=== PATIENT | male | born 1945 | race Caucasian/White ===

== ENCOUNTER 2019-01-03 10:08 | Inpatient (IN) | payer SELFPAY ==
[~2019-01-03] VITALS: Ht 185.4 cm; Wt 130.0 kg
[2019-01-03 10:20] LABS: PCO2 Venous 50.2 mmHg (38-42); pH Blood Venous 7.34 (7.34-7.37)
[2019-01-03 10:21] LABS: Base Excess Venous 1.3 mmol/L; Bicarbonate Venous 24.4 mmol/L (24.0-30.0); PO2 Venous 58.3 mmHg (38-42)
[2019-01-03 10:44] LABS: BASOPHILS ABSOLUTE AUTO 0.08 K/mm3 (0.00-0.23); BASOPHILS PERCENT AUTO 1 % (0-2); EOSINOPHILS ABSOLUTE AUTO 0.18 K/mm3 (0.00-0.68); EOSINOPHILS PERCENT AUTO 2 % (0-6); Hematocrit 49.5 % (37.0-53.0); Hemoglobin 15.9 g/dL (13.5-17.5); IMMATURE GRAN ABSOLUTE AUTO 0.04 K/mm3 (0.00-0.10); IMMATURE GRAN PERCENT AUTO 0 % (0-1); LYMPHOCYTES ABSOLUTE AUTO 3.62 K/mm3 (0.84-5.20); LYMPHOCYTES PERCENT AUTO 32 % (21-46); MONOCYTES ABSOLUTE AUTO 0.76 K/mm3 (0.16-1.47); MONOCYTES PERCENT AUTO 7 % (4-13); Mean Corpuscular HGB 30.1 pg (26.0-34.0); Mean Corpuscular HGB Conc 32.1 g/dL (31.5-36.5); Mean Corpuscular Volume 94 fL (80-100); Mean Platelet Volume 11.6 fL (9.1-12.4); NEUTROPHILS ABSOLUTE AUTO 6.79 K/mm3 (1.96-9.15); NEUTROPHILS PERCENT AUTO 59 % (41-73); Platelet Count 169 K/mm3 (150-400); RDW Coefficient Variation 12.3 % (11.7-14.2); RDW Standard Deviation 42.2 fL (35.1-46.3); Red Blood Cell Count 5.29 M/mm3 (4.30-5.90); White Blood Cell Count 11.47 K/mm3 (4.00-11.30)
[2019-01-03 11:15] LABS: D-Dimer, Quantitative 0.41 mg/L FEU (0.00-0.52); International Normalized Ratio 1.08; Prothrombin Time Results 11.4 Sec (9.7-11.5)
[2019-01-03 11:30] LABS: Alanine Aminotransfer (ALT/SGP 23 U/L (12-78); Albumin, Blood 3.5 g/dL (3.4-5.0); Albumin/Globulin Ratio 0.8 (0.8-1.8); Alk Phos 90 U/L (50-136); Anion Gap 8 mmol/L (6-16); Aspartate Aminotrans (AST/SGOT 17 U/L (12-37); Bilirubin, Total 1.3 mg/dL (0.1-1.0); Blood Urea Nitrogen 17 mg/dL (8-24); Bun/Creatinine Ratio 26.2 (12.0-20.0); CO2, Blood 25 mmol/L (21-32); Calcium, Blood 8.5 mg/dL (8.5-10.1); Chloride, Blood 104 mmol/L (98-108); Creatinine, Blood 0.65 mg/dL (0.60-1.20); Globulin, Blood 4.4 g/dL (2.2-4.0); Glomerular Filtration Rate >60 (60-); Glucose, Blood 236 mg/dL (70-99); Potassium, Blood 3.5 mmol/L (3.5-5.5); Sodium, Blood 137 mmol/L (136-145); Total Protein, Blood 7.9 g/dL (6.4-8.2); Troponin I 0.069 ng/mL (0.000-0.040)
[2019-01-03 11:50] LABS: Digoxin (Lanoxin) 0.64 ug/mL (0.80-2.00)
[2019-01-03] MEDS ORDERED: ELIQUIS5 MG PO (12:28)
[2019-01-03] MEDS ORDERED: DIGOX250 MCG PO (12:29)
[2019-01-03] MEDS ORDERED: Cardizem CD 24240 MG PO (12:29)
[2019-01-03] MEDS ORDERED: MUCUS RELIEF C400 MG PO (12:30)
[2019-01-03] MEDS ORDERED: Flonase 0.05% N16 GM (12:30)
[2019-01-03] MEDS ORDERED: Metoprolol Tar100 MG PO (12:31)
[2019-01-03] MEDS ORDERED: Prinivil10 MG PO (12:31)
[2019-01-03] MEDS ORDERED: TORSE20 PO (12:31)
--- NOTE | 2019-01-03 16:30 | NUR ---
PT ARRIVED TO PCU 14 VIA GURNEY FROM ED. REPORT FROM ED NURSE, PT INDEPENDENT TO TRANSFER TO BED, IN ATTENDENCE. PT STATES HE REFUSED TO BE TRANSFERED TO [facility] HIS HAS ALZHIEMERS AND WOULD NOT BE ABLE TO FIND HER WAY THERE, HE HAS FAMILY COMING UP FROM [facility] AND WOULD BE OPEN TO GOING THEN WHEN THERE IS SOMEONE TO CARE FOR HER. HE IS A/OX3, PLEASANT AND COOPERATIVE WITH CARE, FOLLOWS COMMANDS WELL, DENIES PAIN AT THIS TIME, STATES HE IS BREATHING MUCH EASIER, IS CURRENTLY ON 4 LITERS 02, HAS A CPAP AT HOME, BUT IS SO IRRITATING HE DOESN'T USE IT, LUNGS ARE CLEAR T/O, RESP EVEN AND UNLABORED, HE REPORTS OCC PRODUCTIVE COUGH OF GREEN SPUTUM, HRR, TELE IN PLACE RUNNING AFIB PER MONITOR, SEE STRIP, 1+ EDEMA NOTED TO B/L LE, PPP+2, CAP REFILL <3 SEC, VS STABLE, AFEBRILE, IV SITE IS CLEAR AND PATENT, S.L. BTX4, ABD FLAT SOFT NONTENDER, VOIDS WITHOUT DIFF, SKIN C/W/D, MAEW, KENYON, CALL LIGHT IN REACH.
--- NOTE | 2019-01-03 18:42 | NUR ---
DR. SAHU WAS IN TO SEE PT. WILL CATH HIM TOMORROW. NPO AFTER MIDNIGHT. PT DENEIED PAIN. NO COMPLAINTS. CALL LIGHT IN REACH. AT BEDSIDE.
--- NOTE | 2019-01-03 19:35 | NUR ---
ASSUMED CARE PT RESTING IN ROOM COMFORTABLY W/ SPOUSE AT BEDSIDE. PER DAY SHIFT RN PT WAS A [facility] AND REFUSED TRANSPORT TO [facility] FOR POSSIBLE NSTEMI DUE TO CONCERN OVER SPOUSE, PT IS WIFES PRIMARY CAREGIVER. PER DAY SHIFT PT HAS REMAINED PAIN FREE SINCE ARRIVAL, RESP EVEN UNLBAORED ON 3L NC SATS >95% DENIES SOB. PT IS INDEPENDENT IN ROOM, CALLS APPROPRIATELY FOR HELP W/ LINES AND O2. CALL LIGHT IS IN REACH.
--- NOTE | 2019-01-03 23:45 | NUR ---
HEPARIN GTT STARTED ON PT AFTER CALL TO PROVIDER ABOUT CRITICAL HIGH TROP. PT EDUCATED ON REASON FOR STARTING GTT. NO CHANGE IN PT STATUS. CONTINUES TO DENY PAIN.
--- NOTE | 2019-01-04 06:50 | NUR ---
SHIFT SUMMARY PT RESTING IN ROOM COMFORTABLY. PT HAD ELEVATED TROPONINS OVERNIGHT, PROVIDER WAS CALLED AND HEPARIN GTT WAS STARTED. PT HAD NO COMPLAINTS OF FUTHER CP OVERNIGHT. SLEPT WELL. RESP EVEN UNLBAORED ON 3L NC. SATS >92% DENIES SOB. THIS AM PIV TO L HAND WAS NOTED TO BE BLEEDING AROUND INSERTION. IV DC'D AND LINEN CHANGED. LAB TO ROOM TO DRAW APTT LEVEL THIS AM. WILL RECONNECT HEPARIN AFTER BLOOD DRAW. CALL LIT IN REACH. PT CALLS APPROPRIATLY.
[2019-01-04 07:09] LABS: BASOPHILS ABSOLUTE AUTO 0.07 K/mm3 (0.00-0.23); BASOPHILS PERCENT AUTO 1 % (0-2); EOSINOPHILS ABSOLUTE AUTO 0.17 K/mm3 (0.00-0.68); EOSINOPHILS PERCENT AUTO 2 % (0-6); IMMATURE GRAN ABSOLUTE AUTO 0.04 K/mm3 (0.00-0.10); IMMATURE GRAN PERCENT AUTO 0 % (0-1); LYMPHOCYTES ABSOLUTE AUTO 3.07 K/mm3 (0.84-5.20); LYMPHOCYTES PERCENT AUTO 26 % (21-46); MONOCYTES ABSOLUTE AUTO 0.76 K/mm3 (0.16-1.47); MONOCYTES PERCENT AUTO 7 % (4-13); Mean Corpuscular HGB 30.5 pg (26.0-34.0); Mean Corpuscular HGB Conc 31.9 g/dL (31.5-36.5); Mean Corpuscular Volume 96 fL (80-100); Mean Platelet Volume 11.5 fL (9.1-12.4); NEUTROPHILS ABSOLUTE AUTO 7.51 K/mm3 (1.96-9.15); NEUTROPHILS PERCENT AUTO 65 % (41-73); Platelet Count 172 K/mm3 (150-400); RDW Coefficient Variation 12.4 % (11.7-14.2); RDW Standard Deviation 43.8 fL (35.1-46.3); Red Blood Cell Count 4.92 M/mm3 (4.30-5.90); White Blood Cell Count 11.62 K/mm3 (4.00-11.30)
[2019-01-04 07:27] LABS: Anion Gap 7 mmol/L (6-16); Blood Urea Nitrogen 16 mg/dL (8-24); Bun/Creatinine Ratio 21.8 (12.0-20.0); CO2, Blood 28 mmol/L (21-32); Calcium, Blood 8.7 mg/dL (8.5-10.1); Chloride, Blood 102 mmol/L (98-108); Creatinine, Blood 0.73 mg/dL (0.60-1.20); Glomerular Filtration Rate >60 (60-); Glucose, Blood 165 mg/dL (70-99); Potassium, Blood 3.8 mmol/L (3.5-5.5); Sodium, Blood 137 mmol/L (136-145)
--- NOTE | 2019-01-04 09:10 | NUR ---
PT RESTING IN BED. ASSESS COMPLETE. VSS. CALLED LABOR DELIVERY RN TO GET EST TIME OF PROCEDURE, AWAITING RETURN CALL. AM MEDS GIVEN
--- NOTE | 2019-01-04 09:20 | NUR ---
BUDGET CONTROLLER RN HERE, PT OFF TO BUDGET CONTROLLER
--- NOTE | 2019-01-04 11:40 | NUR ---
PT BACK IN ROOM. ATTEMPTED R GROIN ACCESS, FAILED. PT UNABLE TO STRAIGHTEN R WRIST SO ACCESS WAS OBTAINED IN L TR SITE. TR BAND IN PLACE. SOME OOZING NOTED AT GROIN SITE, SUPERVISOR PAINTING RN HELD PRESSURE FOR APPROX 5 MIN AND PLACED DRSG. SOME BRUISING NOTED AT TR SITE. PT ALERT. STATES SOME SORENESS AT SITES BUT NO PAIN OTHERWISE. NO INTERVENTION, PT HAS MULTIVESSELL DISEASE PER CATH RN'S AND STATE DR SAHU WILL COME TALK WITH PT ABOUT [place] TRANSFER.VSS. CONT TO MONITOR
--- NOTE | 2019-01-04 14:36 | NUR ---
2 CC AIR REMOVED FROM TR BAND. NO NEW BLEEDING NO HEMATOMA, CONTINUJES TO HAVE PAIN AT THE lT WRIST SITE.
--- NOTE | 2019-01-04 18:04 | NUR ---
PT TRANSFERED TO [facility]IA [facility]. REPORT CALLED TO TAWANA MARTINEZ. PT GOING WITH 5CC AIR STILL IN TR BAND. EMS AWARE
== END 2019-01-04 17:43 | disposition short-term general hospital (02) | DRG 280 ==
LOC: ER 10:08 → PCU 13:53
PROVIDERS: Emergency Medicine; ADMIT Internal Medicine
PROC: 5A09357 Assistance with Respiratory Ventilation, Less than 24 Consecutive Hours, Continuous Positive Airway Pressure (ICD-10-PCS; principal; 2019-01-03)
PROC: B2111ZZ Fluoroscopy of Multiple Coronary Arteries using Low Osmolar Contrast (ICD-10-PCS; 2019-01-04)
DX: I21.4 Non-ST elevation (NSTEMI) myocardial infarction (principal); J96.01 Acute respiratory failure with hypoxia; I50.41 Acute combined systolic (congestive) and diastolic (congestive) heart failure; I25.110 Atherosclerotic heart disease of native coronary artery with unstable angina pectoris; I48.91 Unspecified atrial fibrillation; J44.9 Chronic obstructive pulmonary disease, unspecified; E11.9 Type 2 diabetes mellitus without complications; Z87.891 Personal history of nicotine dependence; I44.7 Left bundle-branch block, unspecified; E66.01 Morbid (severe) obesity due to excess calories; Z68.38 Body mass index [BMI] 38.0-38.9, adult; I11.0 Hypertensive heart disease with heart failure
CPT/HCPCS: 36415; 71045; 80048; 80053; 80162; 82803; 82947; 83880; 84484; 85025; 85379; 85610; 85730; 93005; 93010; 93306; 93458; 94660; 94760; 94762; 96374; 99152; 99153; 99285-25; C1722; C1760; C1769; C1887; C1894; J1644; J1940; J2250; J3010; J7030; Q9967

== ENCOUNTER 2019-06-16 07:18 | Emergency (ER) | payer MEDICARE, OTHER ==
[~2019-06-16] VITALS: Ht 185.4 cm; Wt 129.3 kg
[~2019-06-16 07:18] MED LIST: Cardizem CD 24240 MG PO; DIGOX250 MCG PO; ELIQUIS5 MG PO; Flonase 0.05% N16 GM; MUCUS RELIEF C400 MG PO; Metoprolol Tar100 MG PO; Prinivil10 MG PO; TORSE20 PO
[2019-06-16 07:55] LABS: Chloride (POC) 102 mmol/L (98-108); Creatinine (POC) 0.8 mg/dL (0.8-1.3); Glucose (ISTAT POC) 151 mg/dL (70-99); Hemoglobin (POC) 12.9 g/dL (13.5-17.5); Sodium (POC) 136 mmol/L (135-148); Total CO2 (POC) 28 mmol/L (21-32)
[2019-06-16 08:14] LABS: BASOPHILS ABSOLUTE AUTO 0.08 K/mm3 (0.00-0.23); BASOPHILS PERCENT AUTO 1 % (0-2); EOSINOPHILS ABSOLUTE AUTO 0.24 K/mm3 (0.00-0.68); EOSINOPHILS PERCENT AUTO 3 % (0-6); Hematocrit 39.5 % (37.0-53.0); Hemoglobin 12.7 g/dL (13.5-17.5); IMMATURE GRAN ABSOLUTE AUTO 0.04 K/mm3 (0.00-0.10); IMMATURE GRAN PERCENT AUTO 0 % (0-1); LYMPHOCYTES PERCENT AUTO 15 % (21-46); MONOCYTES ABSOLUTE AUTO 0.77 K/mm3 (0.16-1.47); MONOCYTES PERCENT AUTO 8 % (4-13); Mean Corpuscular HGB 29.4 pg (26.0-34.0); Mean Corpuscular HGB Conc 32.2 g/dL (31.5-36.5); Mean Corpuscular Volume 91 fL (80-100); NEUTROPHILS ABSOLUTE AUTO 7.14 K/mm3 (1.96-9.15); NEUTROPHILS PERCENT AUTO 73 % (41-73); RDW Coefficient Variation 15.3 % (11.7-14.2); RDW Standard Deviation 51.5 fL (35.1-46.3); Red Blood Cell Count 4.32 M/mm3 (4.30-5.90); White Blood Cell Count 9.77 K/mm3 (4.00-11.30)
[2019-06-16 08:17] LABS: Mean Platelet Volume 11.7 fL (9.1-12.4); Platelet Count 172 K/mm3 (150-400)
[2019-06-16 08:24] LABS: Alanine Aminotransfer (ALT/SGP 18 U/L (12-78); Albumin, Blood 3.6 g/dL (3.4-5.0); Albumin/Globulin Ratio 0.9 (0.8-1.8); Alk Phos 90 U/L (50-136); Anion Gap 6 mmol/L (6-16); Aspartate Aminotrans (AST/SGOT 17 U/L (12-37); Bilirubin, Total 1.3 mg/dL (0.1-1.0); Blood Urea Nitrogen 22 mg/dL (8-24); CO2, Blood 26 mmol/L (21-32); Calcium, Blood 8.5 mg/dL (8.5-10.1); Chloride, Blood 105 mmol/L (98-108); Creatinine, Blood 0.82 mg/dL (0.60-1.20); Glomerular Filtration Rate >60 (60-); Glucose, Blood 149 mg/dL (70-99); Potassium, Blood 4.1 mmol/L (3.5-5.5); Sodium, Blood 137 mmol/L (136-145); Total Protein, Blood 7.6 g/dL (6.4-8.2); Troponin I <0.015 ng/mL (0.000-0.040)
[2019-06-16] MEDS ORDERED: ATOR40TA (08:44)
[2019-06-16] MEDS ORDERED: FURO40 (08:47)
[2019-06-16] MEDS ORDERED: Flonase 0.05% N16 GM (08:47)
[2019-06-16] MEDS ORDERED: LEVSOD50 PO (08:48)
[2019-06-16] MEDS ORDERED: POTA10T (08:49)
[2019-06-16] MEDS ORDERED: Norco 5-325 Ta1 EACH PO (12:03)
== END 2019-06-16 12:20 | disposition home or self-care (01) ==
LOC: ER 07:18
PROVIDERS: Emergency Medicine
DX: R07.9 Chest pain, unspecified (principal); M25.512 Pain in left shoulder; J81.1 Chronic pulmonary edema; I48.91 Unspecified atrial fibrillation; I10 Essential (primary) hypertension; E11.9 Type 2 diabetes mellitus without complications; D64.9 Anemia, unspecified; Z79.899 Other long term (current) drug therapy
CPT/HCPCS: 36415; 71046; 80047; 80053; 83690; 83880; 84484; 85014; 85025; 93005; 93010; 96374; 99285-25; J1940

== ENCOUNTER 2021-08-21 08:11 | Emergency (ER) | payer MEDICARE, OTHER ==
[~2021-08-21] VITALS: Ht 185.4 cm; Wt 139.7 kg
[~2021-08-21 08:11] MED LIST changes: +ATOR40TA; +FURO40; +LEVSOD50 PO; +Norco 5-325 Ta1 EACH PO; +POTA10T
[2021-08-21 09:00] LABS: BASOPHILS ABSOLUTE AUTO 0.09 K/mm3 (0.00-0.23); BASOPHILS PERCENT AUTO 1 % (0-2); EOSINOPHILS ABSOLUTE AUTO 0.23 K/mm3 (0.00-0.68); EOSINOPHILS PERCENT AUTO 2 % (0-6); Hemoglobin 12.4 g/dL (13.5-17.5); IMMATURE GRAN ABSOLUTE AUTO 0.03 K/mm3 (0.00-0.10); IMMATURE GRAN PERCENT AUTO 0 % (0-1); LYMPHOCYTES ABSOLUTE AUTO 1.76 K/mm3 (0.84-5.20); LYMPHOCYTES PERCENT AUTO 17 % (21-46); MONOCYTES ABSOLUTE AUTO 0.78 K/mm3 (0.16-1.47); MONOCYTES PERCENT AUTO 8 % (4-13); Mean Corpuscular HGB Conc 31.8 g/dL (31.5-36.5); Mean Corpuscular Volume 94 fL (80-100); Mean Platelet Volume 10.8 fL (9.1-12.4); NEUTROPHILS ABSOLUTE AUTO 7.37 K/mm3 (1.96-9.15); NEUTROPHILS PERCENT AUTO 72 % (41-73); Platelet Count 207 K/mm3 (150-400); Red Blood Cell Count 4.14 M/mm3 (4.30-5.90); White Blood Cell Count 10.26 K/mm3 (4.00-11.30)
[2021-08-21 09:26] LABS: Alanine Aminotransfer (ALT/SGP 14 U/L (12-78); Albumin, Blood 3.2 g/dL (3.4-5.0); Albumin/Globulin Ratio 0.7 (0.8-1.8); Alk Phos 83 U/L (50-136); Anion Gap 6 mmol/L (6-16); Aspartate Aminotrans (AST/SGOT 11 U/L (12-37); Bilirubin, Total 1.2 mg/dL (0.1-1.0); Blood Urea Nitrogen 19 mg/dL (8-24); Bun/Creatinine Ratio 22.5 (12.0-20.0); CO2, Blood 26 mmol/L (21-32); Calcium, Blood 8.9 mg/dL (8.5-10.1); Chloride, Blood 104 mmol/L (98-108); Creatinine, Blood 0.84 mg/dL (0.60-1.20); Globulin, Blood 4.6 g/dL (2.2-4.0); Glomerular Filtration Rate >60 (60-); Glucose, Blood 159 mg/dL (70-99); Potassium, Blood 3.6 mmol/L (3.5-5.5); Sodium, Blood 136 mmol/L (136-145); Total Protein, Blood 7.8 g/dL (6.4-8.2); Troponin I <0.015 ng/mL (0.000-0.040)
[2021-08-21] MEDS ORDERED: COMBIVENT RESPIM4 G1 INH (12:33)
[2021-08-21] MEDS ORDERED: ALBU90OI INH (12:33)
[2021-08-21] MEDS ORDERED: DOXY100 PO (12:33)
[2021-08-21] MEDS ORDERED: PRED20 PO (12:33)
== END 2021-08-21 12:44 | disposition home or self-care (01) ==
LOC: ER 08:11
PROVIDERS: Emergency Medicine
DX: I31.3 Pericardial effusion (noninflammatory) (principal); J44.1 Chronic obstructive pulmonary disease with (acute) exacerbation; I48.91 Unspecified atrial fibrillation; Z79.899 Other long term (current) drug therapy; I10 Essential (primary) hypertension; E11.9 Type 2 diabetes mellitus without complications; D64.9 Anemia, unspecified; Z87.891 Personal history of nicotine dependence
CPT/HCPCS: 36415; 71046; 80053; 83880; 84484; 85025; 93005; 93010; 94640; 94644; 96374; 96375; 99285-25; A9270; J1940; J7512

== ENCOUNTER 2023-07-27 09:49 | Emergency (ER) | payer OTHER ==
[~2023-07-27] VITALS: Ht 185.4 cm; Wt 149.7 kg
[~2023-07-27 09:49] MED LIST changes: +ALBU90OI INH; -ATOR40TA; +ATOR40TA PO; +COMBIVENT RESPIM4 G1 INH; +DOXY100 PO; +PRED20 PO
[2023-07-27 11:13] LABS: BASOPHILS ABSOLUTE AUTO 0.12 K/mm3 (0.00-0.23); BASOPHILS PERCENT AUTO 1 % (0-2); EOSINOPHILS ABSOLUTE AUTO 0.18 K/mm3 (0.00-0.68); EOSINOPHILS PERCENT AUTO 2 % (0-6); Hematocrit 41.7 % (37.0-53.0); Hemoglobin 13.9 g/dL (13.5-17.5); IMMATURE GRAN ABSOLUTE AUTO 0.04 K/mm3 (0.00-0.10); IMMATURE GRAN PERCENT AUTO 0 % (0-1); LYMPHOCYTES ABSOLUTE AUTO 1.39 K/mm3 (0.84-5.20); LYMPHOCYTES PERCENT AUTO 13 % (21-46); MONOCYTES ABSOLUTE AUTO 0.64 K/mm3 (0.16-1.47); MONOCYTES PERCENT AUTO 6 % (4-13); Mean Corpuscular HGB 31.9 pg (26.0-34.0); Mean Corpuscular HGB Conc 33.3 g/dL (31.5-36.5); Mean Corpuscular Volume 96 fL (80-100); Mean Platelet Volume 11.6 fL (9.1-12.4); NEUTROPHILS ABSOLUTE AUTO 8.28 K/mm3 (1.96-9.15); NEUTROPHILS PERCENT AUTO 78 % (41-73); Platelet Count 217 K/mm3 (150-400); RDW Coefficient Variation 12.6 % (11.7-14.2); RDW Standard Deviation 44.1 fL (35.1-46.3); Red Blood Cell Count 4.36 M/mm3 (4.30-5.90); White Blood Cell Count 10.65 K/mm3 (4.00-11.30)
[2023-07-27] MEDS ORDERED: Amiodarone HCl200 MG PO (13:29)
[2023-07-27] MEDS ORDERED: ENTRESTO 49 MG1 EACH PO (13:30)
[2023-07-27] MEDS ORDERED: SERT50 PO (13:31)
[2023-07-27] MEDS ORDERED: SPIR25 PO (13:31)
[2023-07-27] MEDS ORDERED: TIOT18 INH (13:31)
[2023-07-27] MEDS ORDERED: METF500 PO (13:31)
[2023-07-27 14:07] LABS: Albumin, Blood 3.4 g/dL (3.4-5.0); Albumin/Globulin Ratio 0.9 (0.8-1.8); Bun/Creatinine Ratio 22.5 (12.0-20.0); Creatinine, Blood 1.02 mg/dL (0.60-1.20); Globulin, Blood 3.8 g/dL (2.2-4.0); Total Protein, Blood 7.2 g/dL (6.4-8.2)
[2023-07-27 15:15] VITALS: BP 136/84
[2023-07-27] MEDS ORDERED: PROM25 PO (15:21)
[2023-07-27] MEDS ORDERED: MECL25 PO (15:21)
== END 2023-07-27 15:29 | disposition home or self-care (01) ==
LOC: ER 09:49
PROVIDERS: Physician Assistant
DX: R42 Dizziness and giddiness (principal); Z87.891 Personal history of nicotine dependence; Z91.030 Bee allergy status; Z91.048 Other nonmedicinal substance allergy status; Z79.899 Other long term (current) drug therapy
CPT/HCPCS: 70450; 80053; 84484; 85025; 93005; 93010; 96360; 99284-25; A9270; J7030

== ENCOUNTER 2023-12-08 11:22 | Emergency (ER) | payer OTHER ==
[~2023-12-08] VITALS: Ht 185.4 cm; Wt 147.4 kg
[~2023-12-08 11:22] MED LIST changes: +Amiodarone HCl200 MG PO; +ENTRESTO 24 MG1 EACH PO; -LEVSOD50 PO; +MECL25 PO; +METF500 PO; +METO100 PO; -Metoprolol Tar100 MG PO; +PROM25 PO; +SERT50 PO; +SPIR25 PO; +SPIRIVA RESPIMAT4 G3 INH; +SYNTHROID50 MCG PO; +Vitamin D1000 UNI1 PO
[2023-12-08 12:14] LABS: BASOPHILS ABSOLUTE AUTO 0.06 K/mm3 (0.00-0.23); BASOPHILS PERCENT AUTO 1 % (0-2); EOSINOPHILS ABSOLUTE AUTO 0.23 K/mm3 (0.00-0.68); EOSINOPHILS PERCENT AUTO 3 % (0-6); Hematocrit 36.8 % (37.0-53.0); Hemoglobin 12.3 g/dL (13.5-17.5); IMMATURE GRAN ABSOLUTE AUTO 0.03 K/mm3 (0.00-0.10); IMMATURE GRAN PERCENT AUTO 0 % (0-1); LYMPHOCYTES ABSOLUTE AUTO 1.81 K/mm3 (0.84-5.20); LYMPHOCYTES PERCENT AUTO 21 % (21-46); MONOCYTES ABSOLUTE AUTO 0.66 K/mm3 (0.16-1.47); MONOCYTES PERCENT AUTO 8 % (4-13); Mean Corpuscular HGB 31.2 pg (26.0-34.0); Mean Corpuscular HGB Conc 33.4 g/dL (31.5-36.5); Mean Corpuscular Volume 93 fL (80-100); Mean Platelet Volume 10.8 fL (9.1-12.4); NEUTROPHILS ABSOLUTE AUTO 5.91 K/mm3 (1.96-9.15); NEUTROPHILS PERCENT AUTO 68 % (41-73); Platelet Count 212 K/mm3 (150-400); RDW Coefficient Variation 13.8 % (11.7-14.2); RDW Standard Deviation 46.7 fL (35.1-46.3); Red Blood Cell Count 3.94 M/mm3 (4.30-5.90)
[2023-12-08 13:02] LABS: Albumin, Blood 3.2 g/dL (3.4-5.0); Albumin/Globulin Ratio 0.8 (0.8-1.8); Bilirubin, Total 1.2 mg/dL (0.1-1.0); Bun/Creatinine Ratio 23.2 (12.0-20.0); Calcium, Blood 9.1 mg/dL (8.5-10.1); Creatinine, Blood 0.99 mg/dL (0.60-1.20); Globulin, Blood 3.9 g/dL (2.2-4.0); Potassium, Blood 4.1 mmol/L (3.5-5.5); Total Protein, Blood 7.1 g/dL (6.4-8.2)
[2023-12-08] MEDS ORDERED: FLOMAX0.4 MG PO (14:02)
[2023-12-08 16:00] VITALS: BP 113/63
== END 2023-12-08 16:16 | disposition home or self-care (01) ==
LOC: ER 11:22
PROVIDERS: Physician Assistant
DX: I48.0 Paroxysmal atrial fibrillation (principal); J44.9 Chronic obstructive pulmonary disease, unspecified; I50.9 Heart failure, unspecified
CPT/HCPCS: 71046; 80053; 85025

== ENCOUNTER 2024-04-16 08:32 | Observation (INO) | payer OTHER ==
[~2024-04-16] VITALS: Ht 185.4 cm; Wt 146.7 kg
[~2024-04-16 08:32] MED LIST changes: +FLOMAX0.4 MG PO; +Isosorbide Mono30 MG PO
[2024-04-16] MEDS ORDERED: Ipratropium/Albuterol SulF 2.5-0.5MG/3 ML Amp INH PRN (08:45)
[2024-04-16 09:34] LABS: BASOPHILS ABSOLUTE AUTO 0.05 K/mm3 (0.00-0.23); BASOPHILS PERCENT AUTO 1 % (0-2); EOSINOPHILS ABSOLUTE AUTO 0.08 K/mm3 (0.00-0.68); EOSINOPHILS PERCENT AUTO 1 % (0-6); Hematocrit 36.8 % (37.0-53.0); Hemoglobin 11.7 g/dL (13.5-17.5); IMMATURE GRAN ABSOLUTE AUTO 0.03 K/mm3 (0.00-0.10); IMMATURE GRAN PERCENT AUTO 0 % (0-1); LYMPHOCYTES ABSOLUTE AUTO 1.21 K/mm3 (0.84-5.20); LYMPHOCYTES PERCENT AUTO 13 % (21-46); MONOCYTES ABSOLUTE AUTO 0.65 K/mm3 (0.16-1.47); MONOCYTES PERCENT AUTO 7 % (4-13); Mean Corpuscular HGB Conc 31.8 g/dL (31.5-36.5); Mean Corpuscular Volume 91 fL (80-100); Mean Platelet Volume 10.6 fL (9.1-12.4); NEUTROPHILS ABSOLUTE AUTO 7.07 K/mm3 (1.96-9.15); NEUTROPHILS PERCENT AUTO 78 % (41-73); Platelet Count 186 K/mm3 (150-400); RDW Coefficient Variation 14.5 % (11.7-14.2); RDW Standard Deviation 48.6 fL (35.1-46.3); Red Blood Cell Count 4.04 M/mm3 (4.30-5.90); White Blood Cell Count 9.09 K/mm3 (4.00-11.30)
[2024-04-16 09:43] LABS: pH Blood Venous 7.42 (7.34-7.37)
[2024-04-16 09:44] LABS: Base Excess Venous -1.6 mmol/L; Bicarbonate Venous 23.4 mmol/L (24.0-30.0); PCO2 Venous 35.9 mmHg (38-42)
[2024-04-16 10:05] LABS: Albumin, Blood 3.7 g/dL (3.4-5.0); Albumin/Globulin Ratio 1.1 (0.8-1.8); Bilirubin, Total 1.6 mg/dL (0.1-1.0); Bun/Creatinine Ratio 18.6 (12.0-20.0); Creatinine, Blood 1.13 mg/dL (0.60-1.20); Globulin, Blood 3.4 g/dL (2.2-4.0); Potassium, Blood 3.8 mmol/L (3.5-5.5); Total Protein, Blood 7.1 g/dL (6.4-8.2)
[2024-04-16] MEDS ORDERED: Furosemide 10 MG/ML 4ML Vial IV ONE (10:25)
[2024-04-16] MEDS ORDERED: Metoprolol Tartrate 1 MG/ML 5 ML VIAL IV PRN ×2 (11:30→15:15)
[2024-04-16] MEDS ORDERED: Acetaminophen 325 MG TABLET PO PRN (15:15)
[2024-04-16] MEDS ORDERED: Furosemide 10 MG/ML 4ML Vial IV SCH (18:00)
--- NOTE | 2024-04-16 19:08 | NUR ---
PT ARRIVED THE MEDICAL FLOOR FROM THE ER VIA GURNY. PT UP WITH MINIMAL ASSIST. THE PT WAS ORIENTED TO THE ROOM LAYOUT AND CALL SYSTEM. CALL LIGHT IN REACH FAMILY AT THE BEDSIDE PT ANSWERS APPROPRIATLY.
[2024-04-16 20:10] VITALS: BP 129/93
[2024-04-16] MEDS ORDERED: Apixaban 5 MG Tab PO SCH (21:00)
[2024-04-16] MEDS ORDERED: Sacubitril/Valsartan 24 MG-26 MG Tab PO SCH (21:00)
[2024-04-16] MEDS ORDERED: Melatonin 5 MG Tablet PO PRN (22:40)
--- NOTE | 2024-04-17 04:18 | NUR ---
SHIFT SUMMARY: PT IS ALERT AND ORIENTED. PT IS CALM AND COOPERATIVE WITH CARE. PT CALLS APPROPRIATELY. PT IS A STANDBY ASSIST TO THE BATHROOM. PT TACHYCARDIC AT THE START OF SHIFT, GAVE PRN LOPRESSOR WHICH WAS EFFECTIVE. PT ALSO BECOMES TACHYCARDIC UPON AMBULATING TO THE BATHROOM BUT RECOVERS TO A NORMAL RATE ONCE BACK IN BED. PT DENIES PAIN, NAUSEA, VOMITING, AND SOB. PT REQUESTED SLEEP AIDE, CALLED HOSPITALIST AND RECEIVED AN ORDER FOR PRN MELATONIN. PT SLEPT INTERMITTENTLY T/O THE NIGHT. BED IN LOW POSITION, CALL LIGHT WITHIN REACH. WILL CONTINUE TO MONITOR.
[2024-04-17] MEDS ORDERED: Levothyroxine Sodium 0.075 MG Tab PO SCH (06:00)
[2024-04-17 06:24] LABS: BASOPHILS ABSOLUTE AUTO 0.07 K/mm3 (0.00-0.23); BASOPHILS PERCENT AUTO 1 % (0-2); EOSINOPHILS ABSOLUTE AUTO 0.15 K/mm3 (0.00-0.68); EOSINOPHILS PERCENT AUTO 2 % (0-6); Hematocrit 35.7 % (37.0-53.0); Hemoglobin 11.6 g/dL (13.5-17.5); IMMATURE GRAN ABSOLUTE AUTO 0.01 K/mm3 (0.00-0.10); IMMATURE GRAN PERCENT AUTO 0 % (0-1); LYMPHOCYTES ABSOLUTE AUTO 1.71 K/mm3 (0.84-5.20); LYMPHOCYTES PERCENT AUTO 20 % (21-46); MONOCYTES ABSOLUTE AUTO 0.89 K/mm3 (0.16-1.47); MONOCYTES PERCENT AUTO 10 % (4-13); Mean Corpuscular HGB 29.5 pg (26.0-34.0); Mean Corpuscular HGB Conc 32.5 g/dL (31.5-36.5); Mean Corpuscular Volume 91 fL (80-100); Mean Platelet Volume 10.7 fL (9.1-12.4); NEUTROPHILS ABSOLUTE AUTO 5.96 K/mm3 (1.96-9.15); NEUTROPHILS PERCENT AUTO 68 % (41-73); Platelet Count 196 K/mm3 (150-400); RDW Coefficient Variation 14.6 % (11.7-14.2); RDW Standard Deviation 48.5 fL (35.1-46.3); Red Blood Cell Count 3.93 M/mm3 (4.30-5.90); White Blood Cell Count 8.79 K/mm3 (4.00-11.30)
[2024-04-17 06:48] LABS: Calcium, Blood 8.6 mg/dL (8.5-10.1); Creatinine, Blood 1.19 mg/dL (0.60-1.20); Potassium, Blood 3.6 mmol/L (3.5-5.5)
[2024-04-17 07:04] VITALS: BP 127/103
[2024-04-17] MEDS ORDERED: Insulin Regular 100 UNIT/ML 10ML Vial SC SCH (07:30)
[2024-04-17] MEDS ORDERED: Potassium Chloride 20 MEQ TabCR PO ONE (07:45)
[2024-04-17] MEDS ORDERED: Atorvastatin 40 MG Tab PO SCH (09:00)
[2024-04-17] MEDS ORDERED: Spironolactone 25 MG Tab PO SCH (09:00)
[2024-04-17] MEDS ORDERED: Tamsulosin HCl 0.4 MG Cap PO SCH (09:00)
[2024-04-17] MEDS ORDERED: Metoprolol Succinate 50 MG TABCR PO SCH ×2 (09:00)
[2024-04-17] MEDS ORDERED: Isosorbide Mononitrate 30 MG TABCR PO SCH (09:00)
[2024-04-17] MEDS ORDERED: Torsemide 20 MG TAB PO SCH (09:00)
[2024-04-17] MEDS ORDERED: Metoprolol Succinate 25 MG TABCR PO ONE (11:00)
[2024-04-17 11:10] VITALS: BP 105/87
[2024-04-17 12:57] VITALS: BP 109/70
--- NOTE | 2024-04-17 15:28 | NUR ---
DISCHARGE SUMMARY PT D/C VIA PRIVATE VEHICLE ACCOMPANIED BY . PT WAS ESCORTED OUT IN WHEELCHAIR BY FIELD BROOMER. PT STATES UNDERSTANDING OF DC INSTRUCTIONS.
== END 2024-04-17 15:25 | disposition home or self-care (01) ==
LOC: ER 08:32 → MEDS 08:33
PROVIDERS: Physician Assistant; Student in an Organized Health Care Education/Training Program; ADMIT Family Medicine
DX: I11.0 Hypertensive heart disease with heart failure (principal); I50.33 Acute on chronic diastolic (congestive) heart failure; I48.91 Unspecified atrial fibrillation; E11.9 Type 2 diabetes mellitus without complications; J44.9 Chronic obstructive pulmonary disease, unspecified; J98.11 Atelectasis; J96.01 Acute respiratory failure with hypoxia; G47.30 Sleep apnea, unspecified; E66.9 Obesity, unspecified; Z68.41 Body mass index [BMI] 40.0-44.9, adult; Z79.84 Long term (current) use of oral hypoglycemic drugs; Z79.899 Other long term (current) drug therapy; Z91.030 Bee allergy status; Z91.038 Other insect allergy status; Z88.8 Allergy status to other drugs, medicaments and biological substances
CPT/HCPCS: 36415; 71045; 80048; 80053; 82803; 82947; 83735; 83880; 84443; 84484; 85025; 94640; 94664; 94762; A9270; J1940

== ENCOUNTER 2024-09-14 03:29 | Inpatient (IN) | payer OTHER ==
[~2024-09-14] VITALS: Ht 185.4 cm; Wt 141.3 kg
[2024-09-14] VITALS (8 sets, daily range): BP systolic 83–117; BP diastolic 64–96
[2024-09-14] MEDS ORDERED: Ipratropium/Albuterol SulF 2.5-0.5MG/3 ML Amp INH ONE (03:35)
[2024-09-14] MEDS ORDERED: MethylPREDNISolone Sod Succ 125 MG Vial IV ONE (03:35)
[2024-09-14 03:39] LABS: Base Excess Venous 1.7 mmol/L; Bicarbonate Venous 23.9 mmol/L (24.0-30.0); PCO2 Venous 50.6 mmHg (38-42); pH Blood Venous 7.34 (7.34-7.37)
[2024-09-14] MEDS ORDERED: Albuterol 2.5 MG/3 ML VIAL INH ONE (03:40)
[2024-09-14 03:51] LABS: BASOPHILS ABSOLUTE AUTO 0.06 K/mm3 (0.00-0.23); BASOPHILS PERCENT AUTO 1 % (0-2); EOSINOPHILS ABSOLUTE AUTO 0.13 K/mm3 (0.00-0.68); EOSINOPHILS PERCENT AUTO 1 % (0-6); IMMATURE GRAN ABSOLUTE AUTO 0.04 K/mm3 (0.00-0.10); IMMATURE GRAN PERCENT AUTO 0 % (0-1); LYMPHOCYTES ABSOLUTE AUTO 1.87 K/mm3 (0.84-5.20); LYMPHOCYTES PERCENT AUTO 18 % (21-46); MONOCYTES ABSOLUTE AUTO 0.69 K/mm3 (0.16-1.47); MONOCYTES PERCENT AUTO 7 % (4-13); Mean Corpuscular HGB 30.4 pg (26.0-34.0); Mean Corpuscular HGB Conc 31.6 g/dL (31.5-36.5); Mean Corpuscular Volume 96 fL (80-100); Mean Platelet Volume 10.9 fL (9.1-12.4); NEUTROPHILS ABSOLUTE AUTO 7.59 K/mm3 (1.96-9.15); NEUTROPHILS PERCENT AUTO 73 % (41-73); Platelet Count 193 K/mm3 (150-400); RDW Coefficient Variation 14.8 % (11.7-14.2); RDW Standard Deviation 52.9 fL (35.1-46.3); Red Blood Cell Count 3.95 M/mm3 (4.30-5.90); White Blood Cell Count 10.38 K/mm3 (4.00-11.30)
[2024-09-14] MEDS ORDERED: MECL25 PO (04:01)
[2024-09-14] MEDS ORDERED: NITR.4SL SL (04:01)
[2024-09-14] MEDS ORDERED: PROM25 PO (04:02)
[2024-09-14 04:04] LABS: Bun/Creatinine Ratio 20.9 (12.0-20.0); Calcium, Blood 9.4 mg/dL (8.5-10.1); Creatinine, Blood 1.15 mg/dL (0.60-1.20); Potassium, Blood 3.6 mmol/L (3.5-5.5)
[2024-09-14] MEDS ORDERED: Doxycycline Hyclate 200 MG in Dextrose 5% 500 ML IV ONE (05:15)
[2024-09-14] MEDS ORDERED: CefTRIAXone Sodium 1,000 MG in NS 100 ML IV ONE (05:15)
[2024-09-14] MEDS ORDERED: Ondansetron HCl 2 MG / ML 2ML Vial IV PRN (06:15)
[2024-09-14] MEDS ORDERED: FLU VACC TS2024-25(6MOS UP)/PF 45 MCG/0.5 ML SYRINGE IM ONE (06:20)
[2024-09-14] MEDS ORDERED: Ipratropium/Albuterol SulF 2.5-0.5MG/3 ML Amp INH PRN (06:20)
[2024-09-14 07:21] LABS: Influenza A, PCR NEGATIVE (NEGATIVE); Influenza B, PCR NEGATIVE (NEGATIVE); Resp Syncytial Virus, PCR NEGATIVE (NEGATIVE); SARS-Cov-2 (COVID-19) PCR, MMC NEGATIVE (NEGATIVE)
[2024-09-14] MEDS ORDERED: Tiotropium Bromide 2.5 MCG/ACT MIST INHAL (10 ACT/4 GM) INH SCH (07:45)
[2024-09-14] MEDS ORDERED: Nitroglycerin 0.4 MG SUBL SL PRN (07:50)
[2024-09-14] MEDS ORDERED: Furosemide 10 MG/ML 4ML Vial IV SCH (08:00)
[2024-09-14] MEDS ORDERED: Albuterol HFA200 ACT/6.7 GM INH INH PRN (08:30)
[2024-09-14] MEDS ORDERED: Enoxaparin 40 MG/0.4 ML SYR SC SCH (09:00)
[2024-09-14] MEDS ORDERED: Tamsulosin HCl 0.4 MG Cap PO SCH (09:00)
[2024-09-14] MEDS ORDERED: Levothyroxine Sodium 0.05 MG Tab PO SCH (09:00)
[2024-09-14] MEDS ORDERED: MethylPREDNISolone Sod Succ 125 MG Vial IV SCH (09:00)
[2024-09-14] MEDS ORDERED: Amiodarone HCl 200 MG Tab PO SCH (09:00)
[2024-09-14] MEDS ORDERED: Isosorbide Mononitrate 30 MG TABCR PO SCH (09:00)
[2024-09-14] MEDS ORDERED: Apixaban 5 MG Tab PO SCH (09:00)
[2024-09-14] MEDS ORDERED: Metoprolol Tartrate 50 MG Tab PO SCH (09:00)
[2024-09-14] MEDS ORDERED: Sacubitril/Valsartan 24 MG-26 MG Tab PO SCH (09:00)
[2024-09-14] MEDS ORDERED: METF500C PO (13:16)
[2024-09-14] MEDS ORDERED: THERA-D2000 UNIT PO (13:19)
[2024-09-14] MEDS ORDERED: B-121000 MC3 PO (13:20)
[2024-09-14] MEDS ORDERED: METO50ER PO (13:29)
[2024-09-14] MEDS ORDERED: Amiodarone HCl200 MG PO (13:30)
--- NOTE | 2024-09-14 17:22 | NUR ---
SHIFT SUMMARY PT REMAINS ALERT AND ORIENTED. BP STABLE THIS AFTERNOON. HR REMAINS PACED. PT DENIES SOB. SATS REMAIN ABOVE 92% ON RA. PT HAS BEEN OFF OF BIPAP SINCE APPROXIMATELY 1400. PT ABLE TO REPOSITION HIMSELF IN THE BED. PT VOIDING USING SUCTION DEVICE DUE TO INCONTINENCE SINCE DIURETICS WERE ADMINISTERED. WILL REPORT OFF TO ONCOMING TAWANA
[2024-09-14] MEDS ORDERED: Azithromycin 500 MG in NS 250 ML IV SCH (18:00)
--- NOTE | 2024-09-14 19:51 | NUR ---
NOTIFICATION THIS RN CONTACTED DR. VOGT REGARDING PT'S HX OF DM. TAKES METFORMIN AT HOME. BGL IS CURRENTLY 215 AND PT IS ALSO RECEIVING IV STEROID. ORDERS ENTERED BY DR. VOGT FOR SLIDING SCALE COVERAGE.
[2024-09-14] MEDS ORDERED: Insulin Regular 100 UNIT/ML 10ML Vial SC SCH (21:00)
[2024-09-15] VITALS (10 sets, daily range): BP systolic 91–116; BP diastolic 52–85
[2024-09-15 04:45] LABS: BASOPHILS ABSOLUTE AUTO 0.01 K/mm3 (0.00-0.23); BASOPHILS PERCENT AUTO 0 % (0-2); EOSINOPHILS PERCENT AUTO 0 % (0-6); Hematocrit 35.6 % (37.0-53.0); Hemoglobin 11.4 g/dL (13.5-17.5); IMMATURE GRAN ABSOLUTE AUTO 0.07 K/mm3 (0.00-0.10); IMMATURE GRAN PERCENT AUTO 1 % (0-1); LYMPHOCYTES ABSOLUTE AUTO 0.62 K/mm3 (0.84-5.20); LYMPHOCYTES PERCENT AUTO 5 % (21-46); MONOCYTES ABSOLUTE AUTO 0.34 K/mm3 (0.16-1.47); MONOCYTES PERCENT AUTO 3 % (4-13); Mean Corpuscular HGB 30.3 pg (26.0-34.0); Mean Corpuscular Volume 95 fL (80-100); Mean Platelet Volume 11.6 fL (9.1-12.4); NEUTROPHILS ABSOLUTE AUTO 11.17 K/mm3 (1.96-9.15); NEUTROPHILS PERCENT AUTO 91 % (41-73); Platelet Count 169 K/mm3 (150-400); RDW Standard Deviation 52.3 fL (35.1-46.3); Red Blood Cell Count 3.76 M/mm3 (4.30-5.90); White Blood Cell Count 12.21 K/mm3 (4.00-11.30)
--- NOTE | 2024-09-15 05:10 | NUR ---
SHIFT SUMMARY PT ALERT AND ORIENTED. ABLE TO APPROPRIATELY EXPRESS NEEDS. SOFT BPS EARLY IN THE NIGHT, RESOLVED WITHOUT INTERVENTION. MAP > 65. CURRENTLY APACED ON TELE. APPEARS TO BE RESTING COMFORTABLY WITH EYES CLOSED. SPO2 99% ON BIPAP 30% FIO2. NO S/S DISTRESS AT THIS TIME.
[2024-09-15 05:15] LABS: Albumin, Blood 3.3 g/dL (3.4-5.0); Albumin/Globulin Ratio 0.9 (0.8-1.8); Bilirubin, Total 1.9 mg/dL (0.1-1.0); Calcium, Blood 9.1 mg/dL (8.5-10.1); Creatinine, Blood 1.29 mg/dL (0.60-1.20); Globulin, Blood 3.6 g/dL (2.2-4.0); Potassium, Blood 4.2 mmol/L (3.5-5.5); Total Protein, Blood 6.9 g/dL (6.4-8.2)
[2024-09-15] MEDS ORDERED: CefTRIAXone Sodium 1,000 MG in NS 100 ML IV SCH (06:00)
--- NOTE | 2024-09-15 17:56 | NUR ---
SHIFT SUMMARY PT REMAINS ALERT AND ORIENTED. BP STABLE. HR REMAINS PACED. O2 SATS HAVE REMAINED ABOVE 90% ON RA. PT DENIES ANY PAIN. PT UP OUT OF BED MULTIPLE TIMES THIS SHIFT WITH SBA AND FWW TO THE BATHROOM NEEDED TO VOID. WILL REPORT OFF TO ONCOMING RN
[2024-09-16 03:15] VITALS: BP 109/82
--- NOTE | 2024-09-16 03:22 | NUR ---
SHIFT SUMMARY PT HAD AN UNEVENTFUL NIGHT. NO ACUTE DISTRESS. SPO2 > 92% ON BIPAP FIO2 30% qHS. CONTINUOUS CARDIAC MONITORING. A-PACED.
[2024-09-16] MEDS ORDERED: Levothyroxine Sodium 0.075 MG Tab PO SCH (06:00)
[2024-09-16 07:43] VITALS: BP 102/74
[2024-09-16] MEDS ORDERED: Spironolactone 12.5 MG TAB PO SCH (09:00)
[2024-09-16] MEDS ORDERED: Empagliflozin 10 MG TAB PO SCH (09:00)
[2024-09-16] MEDS ORDERED: Spironolactone 25 MG Tab PO SCH (09:00)
[2024-09-16] MEDS ORDERED: ALBU8HFA2 INH (13:17)
[2024-09-16] MEDS ORDERED: CEPH500 PO (13:18)
[2024-09-16] MEDS ORDERED: PRED20 PO (13:19)
--- NOTE | 2024-09-16 14:45 | NUR ---
[facility] PT PROVIDED DISCHARGE INSTRUCTIONS. PT EDUCATED ON FOLLOW-UP AND ALL MEDICATIONS. ALL QUESTIONS ANSWERED. PT TAKEN OUT VIA WC WITH ALL BELONGINGS
== END 2024-09-16 14:31 | disposition home or self-care (01) | DRG 193 ==
LOC: ER 03:29 → ERHOLD 05:52 → PCU 05:52
PROVIDERS: Emergency Medicine; ADMIT Internal Medicine
PROC: 5A09357 Assistance with Respiratory Ventilation, Less than 24 Consecutive Hours, Continuous Positive Airway Pressure (ICD-10-PCS; principal; 2024-09-14)
DX: J18.9 Pneumonia, unspecified organism (principal); I50.43 Acute on chronic combined systolic (congestive) and diastolic (congestive) heart failure; J96.01 Acute respiratory failure with hypoxia; J44.0 Chronic obstructive pulmonary disease with (acute) lower respiratory infection; J44.1 Chronic obstructive pulmonary disease with (acute) exacerbation; I48.19 Other persistent atrial fibrillation; I11.0 Hypertensive heart disease with heart failure; E11.9 Type 2 diabetes mellitus without complications; I34.0 Nonrheumatic mitral (valve) insufficiency; I77.810 Thoracic aortic ectasia; G47.33 Obstructive sleep apnea (adult) (pediatric); D64.9 Anemia, unspecified; Z79.01 Long term (current) use of anticoagulants; Z79.890 Hormone replacement therapy; Z79.84 Long term (current) use of oral hypoglycemic drugs; Z79.899 Other long term (current) drug therapy; Z87.891 Personal history of nicotine dependence; Z88.8 Allergy status to other drugs, medicaments and biological substances; Z79.4 Long term (current) use of insulin
CPT/HCPCS: 0241U; 36415; 71045; 71260; 80048; 80053; 82803; 82947; 83036; 83880; 84484; 85025; 85379; 87070; 87205; 93005; 93010; 94640; 94644; 94660; 94664; 94762; 96365-59; 96375-59; 99285-25; A9270; C8929; J0456; J0696; J1650; J1815; J1940; J2405; J2919; J7050; J7060; Q9957; Q9967